=== PATIENT | female | born 1970 | race Caucasian/White ===

== ENCOUNTER 2025-06-17 14:00 | Emergency (ER) | payer MEDICAID, MEDICARE ==
[~2025-06-17] VITALS: Ht 165.1 cm; Wt 75.0 kg
[~2025-06-17 14:00] MED LIST: ADVAIR; ALPR2TAB2; CALCITROL; PRO AIR INHALER; TOPAMAX; TOPOMAX; XANAX; zyprexa
[2025-06-17 14:10] VITALS: O2SAT 98
[2025-06-17] MEDS: SODIUM CHLORIDE 0.9% 1,000 ML IV ONE (14:50)
[2025-06-17] MEDS: METOCLOPRAMIDE HCL 10MG/2ML VIAL IV ONE (14:50)
[2025-06-17] MEDS: PANTOPRAZOLE SODIUM 40 MG/VIAL IV ONE (14:50)
[2025-06-17 14:55] LABS: BASOPHILS % 1.2 % (0.0-2.0); EOSINOPHILS % 4.9 % (0.0-5.0); HEMATOCRIT. 38.2 % (36.0-48.0); HEMOGLOBIN. 12.6 g/dL (12.0-16.0); LYMPHOCYTES % 34.0 % (20.0-50.0); MEAN PLATELET VOLUME 7.7 fl (7.4-10.4); MONOCYTES % 9.2 % (2.0-8.0); NEUTROPHILS % 50.7 % (40.0-76.0); PLATELET 334 x1000/uL (130-400); RED BLOOD CELL COUNT 4.29 mill/uL (4.2-5.4); RED CELL DISTRIBUTION WIDTH 14.5 % (11.6-14.6)
[2025-06-17 15:09] LABS: CREATININE 0.9 mg/dL (0.6-1.0)
[2025-06-17 15:10] LABS: TROPONIN I HIGH SENSITIVITY < 4 ng/L (3.0-34); UREA NITROGEN BLOOD 17 mg/dL (9-23)
[2025-06-17 15:11] LABS: ASPARTATE AMINOTRANSFERASE 24 IU/L (<34)
[2025-06-17 15:12] LABS: BILIRUBIN DIRECT < 0.1 mg/dL (<=3.0); BILIRUBIN TOTAL 0.2 mg/dL (0.1-1.0); PROTEIN TOTAL 6.7 g/dL (6.0-8.3)
[2025-06-17] MEDS ORDERED: OMEP20TA23 MT (17:21)
[2025-06-17] MEDS ORDERED: ONDA-241 MT (17:21)
[2025-06-17 17:27] VITALS: BP 110/84; PULSE 84; RESP 19; TEMP 36.9; O2SAT 99
[2025-06-18] MEDS ORDERED: IOHEXOL-300 100 ML BOTTLE ONE (02:10)
== END 2025-06-17 17:29 | disposition home or self-care (01) ==
LOC: ER 14:00
DX: R10.13 Epigastric pain (principal); F14.90 Cocaine use, unspecified, uncomplicated; F41.9 Anxiety disorder, unspecified; F31.9 Bipolar disorder, unspecified; Z96.659 Presence of unspecified artificial knee joint; Z98.890 Other specified postprocedural states; Z79.899 Other long term (current) drug therapy
CPT/HCPCS: 99285; 74177; 96365; 96375; 80076; 80048; 83690; 85025; 84484; 36415; 93005; Q9967 ×2; J2765; J2470; J7030